=== PATIENT | male | born 1995 | race Caucasian/White ===

== ENCOUNTER → 2016-07-14 | Outpatient (CLI) | payer OTHER ==
[~2016-07-14] MED LIST: CATHETER FLUSH 10 ML SYR IV PRN; IOHEXOL 350 MG/ML 100 ML (OMNIPAQUE 350) VIAL IV ONE; NS 100 ML (IVPB) BAG IV ONE
--- NOTE | 2016-07-14 12:12 | Diagnostic Imaging Report ---
PROCEDURE: CT head with and without contrast. TECHNIQUE: Multiple contiguous axial images were obtained through the brain before and after the administration of intravenous contrast. INDICATION: Posterior headache. Confusion. CONTRAST: 80 mL of Omnipaque 350 is administered intravenously. FINDINGS: There is slightly crowded appearance of the foramen magnum level with brainstem and cerebellar tissue, probably related to cerebellar tonsillar ectopia or Chiari I malformation. Better evaluation with brain MRI is recommended. There is no intracranial hemorrhage. No hydrocephalus. No extra-axial fluid collection is seen. Postcontrast images demonstrate no enhancing lesion. The calvarium, visualized portions of the paranasal sinuses and orbits appear grossly unremarkable. IMPRESSION: 1. No intracranial hemorrhage or enhancing mass. 2. Question of cerebellar tonsillar ectopia or Arnold-Chiari malformation type I. Better evaluation with brain MRI is recommended. Dictated by: Dictated on workstation # [id number]
== END ==
LOC: RAD 10:32
PROVIDERS: ATTEND Nurse Practitioner Community Health
DX: R51 Headache (principal); F39 Unspecified mood [affective] disorder; R41.0 Disorientation, unspecified; M89.9 Disorder of bone, unspecified
CPT/HCPCS: 70470

== ENCOUNTER → 2016-07-22 | Outpatient (CLI) | payer OTHER ==
--- NOTE | 2016-07-22 13:59 | Diagnostic Imaging Report ---
PROCEDURE: MR imaging of the brain without contrast. TECHNIQUE: Multiplanar/multisequence MR imaging of the brain was performed without contrast. INDICATION: Crowded appearance of the region of the foramen magnum seen on a CT scan. Bony prominence in the posterior aspect of the skull. FINDINGS: There is no diffusion restriction to suggest an acute infarct or other diffusion abnormality. There is normal signal in the hill and white matter seen. There is a crowded appearance of the structures in the foramen magnum which appears to relate to cerebellar tonsillar ectopia, borderline Chiari 1 malformation with about 7 mm extension of the cerebellar tonsils below the foramen magnum level. There is no cerebellar, brainstem, or upper cervical spinal cord signal abnormality or edema seen. The posterior fossa demonstrates a normal appearance otherwise with normal signal in the cerebellum and brainstem. The internal auditory canals and inner ear structures appear symmetric. The pituitary gland is normal in size. No hypothalamic or pineal region mass. The paranasal sinuses and orbits appear grossly unremarkable. There is slight prominence of the skull posteriorly and centrally near the origin of the superficial posterior neck muscles with no abnormal mass or abnormal marrow signal. This could be developmental or secondary to old injury. 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 There is, however, no abnormal signal seen within the cerebellar tonsils or the brainstem. Dictated by: Dictated on workstation # [id number]
== END ==
LOC: RAD 12:06
PROVIDERS: ATTEND Nurse Practitioner Community Health
DX: M89.9 Disorder of bone, unspecified (principal)
CPT/HCPCS: 70551